=== PATIENT | female | born 1970 | race Caucasian/White ===

== ENCOUNTER 2018-09-03 06:58 | Emergency (ER) | payer OTHER ==
[~2018-09-03] VITALS: Ht 162.6 cm; Wt 93.0 kg
[2018-09-03] MEDS ORDERED: LISINOPRIL (07:25)
--- NOTE | 2018-09-03 07:32 | NUR ---
PT ARRIVED AMBULATORY TO ROM 19 WIT . PT HAS BEEN TREATED FOR BLADDER INFECTION ON SUNDAY, TAKING MACROBID AND EXPERIENCING NO REFLIEF OF URINARY SYMPTOMS. PT DRESSED IN GOWN, STEADY GAIT, AAO X 4, VSS. RESTING COMFORTABLY ON GURNEY, CALL LIGHT AND BELONGINGS WITHIN REACH.
[2018-09-03 07:57] LABS: BASOPHILS # (AUTO) 0.02 x10^3/uL (0-0.1); BASOPHILS % (AUTO) 0 % (0-1); EOSINOPHILS # (AUTO) 0.09 x10^3/uL (0-0.4); EOSINOPHILS % (AUTO) 1 % (1-7); LYMPHOCYTES # (AUTO) 1.91 x10^3/uL (1-3.4); LYMPHOCYTES % (AUTO) 27 % (22-44); MD NO; MEAN CORPUSCULAR HEMOGLOBIN 30.2 pg (27.0-34.8); MEAN CORPUSCULAR HGB CONC 33.4 g/dL (32.4-35.8); MEAN CORPUSCULAR VOLUME 90.3 fL (80-100); MEAN PLATELET VOLUME 9.8 fL (7.4-10.4); MONOCYTES # (AUTO) 0.36 x10^3/uL (0.2-0.8); MONOCYTES % (AUTO) 5 % (2-9); NEUTROPHILS # (AUTO) 4.79 x10^3/uL (1.8-6.8); NEUTROPHILS % (AUTO) 67 % (42-75); PLATELET COUNT 219 x10^3/uL (130-400); RED BLOOD COUNT 4.91 x10^6/uL (3.82-5.3); RED CELL DISTRIBUTION WIDTH 13.3 % (9.6-15.2)
[2018-09-03 08:02] LABS: ALANINE AMINOTRANSFERASE 28 U/L (12-78); ALBUMIN 4.2 g/dL (3.4-5.0); ANION GAP 7 mmol/L (5-15); CALCIUM 9.6 mg/dL (8.5-10.1); CHLORIDE 107 mmol/L (98-107); CREATININE 1.14 mg/dL (0.55-1.02)
[2018-09-03 08:05] LABS: ALKALINE PHOSPHATASE 97 U/L (45-117); BILIRUBIN,TOTAL 0.6 mg/dL (0.2-1.0); TOTAL PROTEIN 7.8 g/dL (6.4-8.2)
[2018-09-03] MEDS ORDERED: KETOROLAC 30 MG/1 ML IM ONE (08:30)
[2018-09-03] MEDS ORDERED: KETOROLAC 30 MG/1 ML ONE (08:38)
--- NOTE | 2018-09-03 08:45 | NUR ---
PT AMBULATORY TO RESTROOM. AAO X 4, MEDICATED FOR PAIN PER MAR.
[2018-09-03 08:48] LABS: CULTURE INDICATED? NO; HCG UR SG 1.014 (1.003-1.030); MICROSCOPIC AUTO
--- NOTE | 2018-09-03 09:15 | NUR ---
VSS, PT AAO X 4, PAIN DECREASED IN INTENSITY, RESTING COMFORTABLY.
[2018-09-03 09:44] VITALS: BP 140/76
--- NOTE | 2018-09-03 09:45 | NUR ---
Patient/Caregiver given discharge instructions and they have confirmed that they understand the instructions. Patient ambulatory with steady gait.
== END 2018-09-03 10:06 | disposition home or self-care (01) ==
LOC: ED 07:59
DX: N20.1 Calculus of ureter (principal); Z87.442 Personal history of urinary calculi; Z88.8 Allergy status to other drugs, medicaments and biological substances
CPT/HCPCS: 36415; 74176; 80053; 81001; 81025; 85025; 96372; 99284; J1885

== ENCOUNTER 2019-02-12 23:45 | Emergency (ER) | payer OTHER ==
[~2019-02-12] VITALS: Ht 162.6 cm; Wt 88.0 kg
[~2019-02-12 23:45] MED LIST: LISINOPRIL
--- NOTE | 2019-02-13 00:14 | NUR ---
Patient brought into room by ems. Able to transfer self from [facility] to [facility]. Received report from ems and patient. Patient is alert, oriented speaks clearly and concisely. Patient reports flank pain consistent with previous kidney stones. Also sees a urologist. Patient has a low grade fever, see triage flowsheet. Vital signs stable. Midlevel provider to bedside, orders placed. Patient provided with glycerin swabs. Computational [employer] Professor at bedside. Awaiting lab results.
[2019-02-13 00:26] LABS: BASOPHILS % (AUTO) 0 % (0-1); EOSINOPHILS # (AUTO) 0.04 x10^3/uL (0-0.4); EOSINOPHILS % (AUTO) 1 % (1-7); LYMPHOCYTES # (AUTO) 0.82 x10^3/uL (1-3.4); LYMPHOCYTES % (AUTO) 11 % (22-44); MD NO; MEAN CORPUSCULAR HEMOGLOBIN 30.8 pg (27.0-34.8); MEAN CORPUSCULAR HGB CONC 33.6 g/dL (32.4-35.8); MEAN CORPUSCULAR VOLUME 91.7 fL (80-100); MEAN PLATELET VOLUME 9.3 fL (7.4-10.4); MONOCYTES # (AUTO) 0.07 x10^3/uL (0.2-0.8); MONOCYTES % (AUTO) 1 % (2-9); NEUTROPHILS # (AUTO) 6.36 x10^3/uL (1.8-6.8); NEUTROPHILS % (AUTO) 87 % (42-75); PLATELET COUNT 154 x10^3/uL (130-400); RED BLOOD COUNT 4.27 x10^6/uL (3.82-5.3); RED CELL DISTRIBUTION WIDTH 13.4 % (9.6-15.2)
[2019-02-13 00:33] LABS: ANION GAP 7 mmol/L (5-15); CALCIUM 8.2 mg/dL (8.5-10.1); CHLORIDE 110 mmol/L (98-107); CREATININE 1.01 mg/dL (0.55-1.02)
--- NOTE | 2019-02-13 01:07 | NUR ---
Break RN: urine sample obtained and sent to lab. Ultrasound at bedside.
[2019-02-13 01:23] LABS: MICROSCOPIC AUTO
[2019-02-13 01:31] LABS: CULTURE INDICATED? YES
[2019-02-13 02:15] VITALS: BP 111/68
--- NOTE | 2019-02-13 02:19 | NUR ---
New orders placed after resulting of urinalysis. Patient out of room to CT scan. Awaiting ultrasound read.
--- NOTE | 2019-02-13 02:25 | NUR ---
Back from CT. Resting comfortably, awaiting computed tomography read.
[2019-02-13] MEDS ORDERED: SODIUM CHLORIDE 0.9% 1,000ML IVBOLUS ONE (03:00)
[2019-02-13] MEDS ORDERED: CEFTRIAXONE PMX 1GM/50ML 50 ML IV ONE (03:00)
[2019-02-13] MEDS ORDERED: SODIUM CHLORIDE FLUSH 10ML SYR IVF ONE (03:00)
[2019-02-13] MEDS ORDERED: IBUPROFEN 600 MG TABLET PO ONE (03:00)
[2019-02-13] MEDS ORDERED: CEFTRIAXONE PMX 1GM/50ML 50 ML ONE (03:03)
[2019-02-13] MEDS ORDERED: IBUPROFEN 600 MG TABLET ONE (03:03)
== END 2019-02-13 04:23 | disposition home or self-care (01) ==
LOC: ED 02-13 00:24
DX: N10 Acute pyelonephritis (principal); R11.0 Nausea; R10.9 Unspecified abdominal pain; I10 Essential (primary) hypertension
CPT/HCPCS: 36415; 74176; 76770; 80048; 81001; 85025; 87040; 87077; 87086; 87186; 96365; 99284; J0696; J7030

== ENCOUNTER → 2019-08-28 | Outpatient (CLI) | payer OTHER | END | disposition home or self-care (01) | LOC: CFH 08:39 | PROVIDERS: ATTEND Physician Assistant Surgical | DX: N20.0 Calculus of kidney (principal) | CPT/HCPCS: 74018 ==